=== PATIENT | male | born 1950 | race Caucasian/White ===

== ENCOUNTER → 2023-07-03 10:54 | Outpatient (REF) | payer MEDICARE, OTHER, SELFPAY | LOC: HWRAD 10:54 | PROVIDERS: ATTENDING PHYSICIAN Internal Medicine | DX: Z87.891 Personal history of nicotine dependence (principal) | CPT/HCPCS: 71271 ==

== ENCOUNTER → 2024-07-05 07:00 | Outpatient (REF) | payer MEDICARE, OTHER, SELFPAY | LOC: PAVMRI 07:00 | PROVIDERS: ATTENDING PHYSICIAN Internal Medicine | DX: M54.12 Radiculopathy, cervical region (principal) | CPT/HCPCS: 72141 ==

== ENCOUNTER → 2024-07-09 10:47 | Outpatient (REF) | payer MEDICARE, OTHER, SELFPAY | LOC: HWRAD 10:47 | PROVIDERS: ATTENDING PHYSICIAN Internal Medicine | DX: Z87.891 Personal history of nicotine dependence (principal) | CPT/HCPCS: 71271 ==

== ENCOUNTER → 2025-01-10 07:25 | Outpatient (REF) | payer MEDICARE, OTHER, SELFPAY | LOC: RAD 07:25 | PROVIDERS: ATTENDING PHYSICIAN Internal Medicine | DX: I73.9 Peripheral vascular disease, unspecified (principal) | CPT/HCPCS: 93925 ==

== ENCOUNTER 2025-02-23 03:41 | Inpatient (IN) | payer MEDICARE, OTHER, SELFPAY ==
[2025-02-22 19:24] VITALS: BP 182/83
[2025-02-22 19:51] LABS: Hematocrit 42.2 % (39.0-52.0); Hemoglobin 14.7 g/dL (13.0-18.0); Mean Corp Hgb Conc. 34.8 g/dL (33.0-37.0); Mean Corpuscular Volume 90.9 fL (80.0-94.0); Nucleated Red Blood Cells % 0 % (-); Platelet Count 169 10^3/uL (130-400); Red Cell Dist. Width 12.5 % (11.5-14.5)
[2025-02-22 20:11] LABS: ALT (SGPT) 17 U/L (0-50); AST (SGOT) 16 U/L (17-59); Albumin 4.1 g/dl (3.5-5.0); Alkaline Phosphatase 46 U/L (38-126); Blood Urea Nitrogen 18 mg/dl (9-20); Calcium 9.3 mg/dl (8.4-10.2); Carbon Dioxide 28 mmol/L (22-30); Chloride 103 mmol/L (98-107); Glucose 144 mg/dl (70-99); Potassium 4.0 mmol/L (3.5-5.1); Sodium 136 mmol/L (135-145); Total Protein 7.7 g/dl (6.3-8.2); eGFR > 60.00
[2025-02-22 20:22] LABS: Troponin I < 0.012 ng/ml
[2025-02-23] VITALS (13 sets, daily range): BP systolic 145–203; BP diastolic 80–111; PULSE 63; O2SAT 99; BMI 26.4
--- NOTE | 2025-02-23 00:02 | ED.GENMED ---
History of Present Illness
General
Chief Complaint: Dizziness
Source: patient
Exam Limitations: none
Time Seen by Provider: 02/23/25 00:02
History of Present Illness
History of Present Illness:
Patient noted difficulty with ambulation and feeling like his equilibrium was all starting this morning. No vertigo. No syncope or near syncope. No other neurologic symptoms. No history of same. Significant blood pressure elevations throughout
the day.
Past History
Past History
ED Past Medical History: HTN, Hypercholesterolemia and Other (bph)
ED Past Surgical History: Orthopedic
Social History
Tobacco: Smoker
Alcohol: Occasional
Drug: None
Personal:
Living: with family
Review of Systems
Review of Systems
All Other Systems: Not applicable
Constitutional: Denies fever
Respiratory: Reports no symptoms
Cardiac: Reports no symptoms
Phy Exam
Physical Exam
Physical Exam:
GENERAL: Alert and oriented in no apparent distress
EYE: Orbits normal.
NECK: Supple, no carotid bruit
ENT: Pharynx without erythema
CARDIAC: Regular rate and rhythm without any obvious murmurs.
LUNGS: Clear breath sounds,normal
ABDOMEN: Soft, without focal tenderness or distention
NEUROLOGICAL: Alert and oriented , speech normal. Cranial nerves II through XII intact. Unwpon-aa-nycw normal. No drift. Yfbw-br-ycig normal. Gait slightly wide-based and mildly ataxic with a mildly positive Romberg
SKIN: Warm and dry, no rash or lesion, no discoloration, skin intact.
MUSCULOSKELETAL: No edema,no deformity.Good color
PSYCH: Normal and appropriate interaction.
Course
Orders/Labs/Results
Orders:
Orders
02/22/25 19:29
EKG [Electrocardiogram (*1)] Urgent
Reason for Study: Vertigo / Dizzy
EKG- Treatment ONCE
02/22/25 19:41
Complete Blood Count/With Diff Urgent
Comprehensive Metabolic Panel Urgent
Troponin I Urgent
02/23/25 00:23
CT Head W/o Iv Contrast Urgent
Comment:
Reason For Exam: Disequilibrium
Cardiac Monitoring- Treatment ONCE
IV Insert/Care/Rem.- Treatment PRN
02/23/25 03:08
Admit/Transfer Patient As Directed
Co-Sign Provider:
Level of Care: Inpatient admission
Assign to:: Telemetry
Physician / Group: Deshawn
Diagnosis: Hypertensive Urgency, Ataxia
Reason for Telemetry: CVA/TIA
Date to Stop Telemetry: 02/26/25
Time to Stop Telemetry: 11:00
Reason for Hospitalization: Hypertensive Urgency, Ataxia
Expected length of stay greater than two midnights?: Yes
ELOS- Estimated Length of Stay in days: 2
I certify the patient meets the requirements for IP care: Yes
Labetalol HCl [Trandate] 10 mg IV NOW STA
PRN Pain Medication Management As Directed
May give lesser potent ordered pain med per pt: Yes
preference::
Protocol:: Medication orders for pain may be administered in a
manner that supports deferring to patient preference
when the pt is:
- Requesting an ordered lesser potent pain medication.
Least to most potent pain medications are defined
as: acetaminophen < NSAID < tramadol < opioids
(morphine, oxycodone, hydromorphone).
- Requesting a lesser dose of the same medication IF
ORDERED.
- Requesting a less intrusive route of administration
if both routes are prescribed by the provider (PO <
IV).
02/23/25 03:09
Code Status As Directed
Resuscitation Status: Full Code
02/23/25 03:48
Acetaminophen [Tylenol] 650 mg PO Q4HPRN PRN
FOLic ACID [Folvite] 1 mg 0.9% Sodium Chloride 50 ml [Nss] 50 ml IV DAILYPRN
HydrALAZINE [Apresoline] 5 mg IV Q6HPRN PRN
Lorazepam [Ativan] 1 mg PO Q2HPRN PRN
02/23/25 03:48
Case Management Consult Once
Case Management Consult: Other
Comment: Substance abuse counseling
DIETARY IP CONSULT Routine
Reason for Consult: Nutrition support, possible refeeding guidelines
Activity As Directed
Activity Level: Ambulate
With Assistance
Bladder Scan As Directed
Follow Bladder Retention/Intermittent Cath Algorithm?: Yes
PRN if no void in __ hours: 6
Frequency: Per Retention Algorithm
If Bladder Scan Result >: 400
then:: Straight cath
EKG with chest pain [ECG as needed] As Directed
ECG as needed for:: Chest Pain
I/O [Intake/ Output] As Directed
Frequency: Per unit guidelines
MSAS SCORE As Directed
MSAS Score 0-4: Repeat MSAS every 2 hours until 0-4 for three consecutive assessments, then every 4 hours x 48
hours.
MSAS Score 5-7: For MILD withdrawl symptoms. Repeat MSAS and RASS every 2 hours
MSAS Score 8-11: For MODERATE withdrawal symptoms. Repeat MSAS and RASS every 1 hour. Consider ICU or IMU
level of care.
MSAS Score > 11: For SEVERE withdrawal symptoms. Repeat MSAS and RASS every 1 hour. Notify provider, consider
ICU level of care.
MSAS Additional Instructions: If no improvement or no decrease in score from severe to moderate within 12
hours, consult psychiatry
MSAS Notify Provider: Notify provider if patient requires more than 10 mg of Lorazepam in eight hour period.
Neurological Checks As Directed
Frequency: q4h
Orthostatic Vital Signs As Directed
Orthostatic VS Frequency: BID
Pneumatic Compression Sleeves As Directed
Type: Knee high
Straight Cath As Directed
Frequency: Per Retention Algorithm
Additional Instructions: straight cath as needed per acute urinary retention algorithm for 24 hrs
Additional Instructions: for bladder scan greater than 400 mL
Vital Signs As Directed
Frequency: Per unit guidelines
Weight As Directed
Frequency: Daily
Oxygen Therapy [O2 Therapy] [RESP] Routine
Titrate/Wean O2 to maintain O2 sat greater than (%): 94
Ot Eval And Treat Routine
PT Consult [Pt Eval And Treat] Routine
Activity Level: Ambulate
With Assistance
DX Deep Vein Thrombosis Video Routine
02/23/25 03:53
COVID-19 Antigen Urgent
Source: Nasal Swab
02/23/25 03:59
diazePAM [Valium Injection] 5 mg IV Q1HPRN PRN
02/23/25 04:00
diazePAM [Valium Injection] 10 mg IV Q1HPRN PRN
02/23/25 04:03
Urinalysis Urgent
Date Specimen was Collected: 02/23/25
Time Specimen was Collected: 03:55
Urine Drug Abuse Screen Routine
Date Specimen was Collected: 02/23/25
Time Specimen was Collected: 03:55
02/23/25 05:25
Basic Metabolic Panel IN AM
Cardiovascular Evaluation IN AM
Complete Blood Count/No Diff IN AM
Glycohemoglobin (HgbA1c) Routine
02/23/25 06:00
EKG [Electrocardiogram (*1)] IN AM
Reason for Study: Chest Pain
Regular
At Your Request: Full Participation
MR Brain Without Contrast IN AM
Comment:
Reason For Exam: CVA / TIA
Recent pill cam endoscopy?: No
02/23/25 08:00
Aspirin Chewable [Low Strength Aspirin] 81 mg PO DAILY
FOLic ACID [Folvite] 1 mg PO DAILY
Finasteride [Proscar] 5 mg PO DAILY
Losartan [Cozaar] 50 mg PO BID
Thiamine Injection 200 mg IV Q12
02/23/25 18:00
Rosuvastatin Calcium [Crestor] 10 mg PO QPM
02/26/25 08:00
Thiamine HCl [Vitamin B1] 100 mg PO BID
02/26/25 11:00
DC Protocol for Telemetry ONCE
Abnormal Lab Results
02/22/25
19:41
RBC 4.64 L 10^6/uL
(4.70-6.10)
MCH 31.7 H pg
(27.0-31.0)
Absolute Monos (auto) 0.7 H 10^3/uL
(0.1-0.6)
Monocytes % 9.5 H %
(1.7-9.3)
Glucose 144 H mg/dl
(70-99)
AST 16 L U/L
(17-59)
02/22/25 19:41
02/22/25 19:41
Vital Signs
Initial and Last Documented VS:
Initial Vital Signs
Temp Pulse Resp BP Pulse Ox
98.7 F 73 20 182/83 98
02/22/25 19:24 02/22/25 19:24 02/22/25 19:24 02/22/25 19:24 02/22/25 19:24
Last Documented Vital Signs
Temp Pulse Resp BP Pulse Ox
98 F 64 14 150/87 98
02/24/25 11:02 02/24/25 11:02 02/24/25 11:02 02/24/25 11:02 02/24/25 11:02
MDM/Problems Addressed
Differential Diagnosis Includes:
Patient complaining of some ataxia, disequilibrium. Started this morning. No other neurologic symptoms. Not describing vertigo syncope or near syncope. Concerning for possible central etiology. Also with significant systolic hypertension.
Admit for further care
*Radiology
Radiology exam reviewed: radiology read reviewed (Questionable 3 mm subdural involving the tentorium)
*Pulse Oximetry
SaO2: 98
Oxygen Mode of Delivery: Room air
Patient hypoxic: no
*EKG
Interpreted by ED Provider?: Yes
Interpretation: normal
Comparison EKG: no changes
Heart Rate: 64
Rate: normal
Rhythm: sinus
Ridgeway: normal axis
Interval: normal interval
QRS Pattern: normal QRS
Ischemia: no ischemia
*Critical Care Note
Total Time (30-74mins, 75-104mins- exclusive of procedures): Not Applicable
Data Reviewed
Review of Other/Old Records Reveals: Labs, Records and Testing
Update Note
Update Note:
Reviewed with [facility]. No indication for transfer at this time. Repeat CT in 6 hours. Patient was reviewed and has had no trauma. Unlikely to be the etiology of his symptoms. Takes a baby aspirin per day. As for blood pressure,
systolic remains elevated along with diastolic. For central nonhemorrhagic would want permissive hypertensive. For possibility of subdural would want to keep blood pressure well-maintained. Given the low suspicion for significant subdural along
with more suspicion for central nonhemorrhagic etiology his current blood pressure of 180/105 we will continue observation
ED Attending Note
-
Portions of this chart may have been created with voice recognition software.� Occasional wrong word or��sound alike� substitutions may have occurred due to the inherent limitations of voice recognition software.
Discharge Plan
Departure
Patient Disposition: Admit
Date of Disposition: 02/23/25
Time of Disposition: 02:23
Presentation/result/management discussed w/ accepting MD/DO: Hospitalist
Discharge Problem:
Ataxia/disequilibrium, Possible small subdural, Elevated blood pressure reading
Interventions
Interventions:
*Risk Screen - Suicide Last Done: 02/22/25 19:24
*General Assessment Last Done: 02/22/25 19:24
*Neglect/Abuse Screening Last Done: 02/22/25 19:24
*ED- Fall Risk Assessment Last Done: 02/23/25 02:26
*ED COVID-19 Vaccine History Last Done: 02/22/25 19:28
*Nursing Disposition Last Done: 02/23/25 04:47
ED- Neurological Assessment Last Done: 02/23/25 00:51
ED- Cardiac Assessment Last Done: 02/23/25 02:00
ED Swallowing Screen Last Done: 02/23/25 00:51
Discharge Date and Time
Discharge Date/Time: 02/23/25 04:48
--- NOTE | 2025-02-23 03:13 | HPS.HSE ---
Family Physician
-
Family Physician: Joel Reza
Chief Complaint
-
Unsteady Gait
History of Present Illness
Patient is a 75y M with PMH significant for hypertension and BPH who presents to ED complaining of unsteady gait since this AM. Patient states that he felt well yesterday with no issues / complaints. Early this AM he noted that his balance was
off. He states he was 'stumbling around like a drunk'. He did not fall. He denies any lightheadedness or room spinning sensation. He states that it felt like he was standing on a boat / moving floor. He denies any associated headache, vision
changes, numbness / tingling, focal weakness, etc. He denies any prior h/o similar symptoms.
Patient notes that his symptoms persisted throughout the day and he presented to the ED for further evaluation.
He monitored his BP at home today and it was consistently 200/100 or so. He monitors his BP daily and states that it is usually 120/80.
His losartan dose was actually decreased about 2 1/2 months ago due to low BP.
No other recent medication changes.
No personal history of OH, CVA.
Medical History
Past Medical History
Past Medical History: Reports Other
Additional Past Medical History:
Hypertension
BPH
PAD
SUJATHA (not on CPAP)
Past Surgical History: Reports Other
Additional Past Surgical History:
Left Wrist ORIF
Social History
Tobacco: Smoker (Current every day smoker. 1/2 ppd. > 40 pack years total.)
Alcohol: Daily (2-3 drinks daily on average.)
Drug: None
Family History
Family History: Not pertinent
Allergies / Home Medications
Allergies reflects when Allergies were last updated in [employer]
Home Medications with original date entered in [employer]
Allergy/Medication List:
Allergies
Allergy/AdvReac Type Severity Reaction Status Date / Time
No Known Allergies Allergy Verified 02/22/25 19:31
Home Medications
losartan 100 mg tablet 50 mg PO DAILY 10/17/19
rosuvastatin 10 mg tablet 10 mg PO QPM 10/17/19
famotidine 20 mg tablet 20 mg PO DAILY 02/23/25
finasteride 5 mg tablet 5 mg PO DAILY 02/23/25
Review of Systems
-
History Source: Patient
A 12 point ROS was completed and negative except as noted: Yes
Constitutional: Denies Fever or Chills
Respiratory: Denies Cough or Trouble Breathing
Cardiac: Denies Chest Pain or Palpitations
Abdomen/GI: Denies Abdominal Pain, Nausea, Vomiting or Diarrhea
: Denies Dysuria or Flank Pain
Musculoskeletal: Denies Joint Pain or Edema
Neurological: Reports Other (ataxia); Denies Dizzy, Headache, Weakness or Numbness
Psych: Denies Depression or Anxiety
Physical Exam
Vital Signs
Vital Signs
Temp Pulse Resp BP Pulse Ox
98.7 F 62 16 179/104 97
02/22/25 19:24 02/23/25 02:19 02/23/25 02:19 02/23/25 02:16 02/23/25 02:19
Physical Exam
General: Other (75y M in no acute distress.)
HEENT: Moist mucous membranes and PERRLA
Respiratory: Clear; No Wheezes, Rales or Rhonchi
Cardiac: S1/S2, Regular Rhythm and Murmur (II/ CHICHI)
GI: Soft, Non Tender, Non Distended and Normal Bowel Sounds
Musculoskeletal: No Clubbing, No Cyanosis and No Edema
Neuro: AO x 3 and Other (Strength and sensation are intact and symmetric. Somewhat tremulous / unsteady with [id number] on the L.)
Laboratory Results
-
02/22/25 19:41
02/22/25 19:41
Laboratory Results
Total Bilirubin 0.5 mg/dl (0.2-1.3) 02/22/25 19:41
AST 16 U/L (17-59) L 02/22/25 19:41
ALT 17 U/L (0-50) 02/22/25 19:41
Alkaline Phosphatase 46 U/L (38-126) 02/22/25 19:41
Troponin I < 0.012 ng/ml 02/22/25 19:41
Impression/Plan
-
A/P: Patient is a 75y M with PMH significant for hypertension and BPH who presents to ED for evaluation of elevated BP and ataxia.
Ataxia
Hypertensive Urgency
- Admit for further evaluation and treatment.
- ? CVA with reflex hypertension versus unsteady gait / ataxia secondary to marked hypertension.
- Multiple risk factors for CVA including ongoing tobacco use, hypertension, etc.
- Follow serial neurologic exams for changes.
- ASA daily for now. Continue statin.
- MRI in AM.
- PT / OT evaluations.
- Neuro eval for additional recommendations.
- Check lipids, A1C, etc.
- Lower BP and follow for any improvement in symptoms. IV labetalol x 1 dose now.
- Continue losartan and increased to BID. IV hydralazine PRN.
- Adjust med regimen as needed for adequate BP control prior to discharge.
Abnormal CT Head
- CT done in the ED shows area of thickening of the L tentorium. Cannot rule out small SDH (doubtful).
- Repeat imaging with MRI in AM as noted above to assess for any changes.
BPH
- Continue finasteride. Bladder scan protocol.
SUJATHA
- Not tolerant of PAP therapy.
- Would encourage follow-up with Sleep specialist to discuss treatment options.
Tobacco Use Disorder
Alcohol Use Disorder
- Encourage cessation of both.
- Monitor for any signs / symptoms of EtOH withdrawal and treat with BZDs as needed.
- Thiamine, MVI replacement, etc.
DVT Prophylaxis: SCDs
Code Status: Full
[2025-02-23] MEDS: TRANDATE 10 MG IV (03:41)
[2025-02-23 04:13] LABS: Urine Character Clear (Clear)
[2025-02-23 04:18] LABS: COVID-19 Antigen Negative (Negative)
[2025-02-23 04:24] LABS: Urine Red Blood Cell 0-2 /HPF (0-2); Urine Squamous Cell 0-2 /LPF (Few); Urine White Cell 0-2 /HPF (0-5)
[2025-02-23 06:00] LABS: Hematocrit 40.7 % (39.0-52.0); Hemoglobin 14.0 g/dL (13.0-18.0); Mean Corp Hgb Conc. 34.4 g/dL (33.0-37.0); Mean Corpuscular Volume 91.7 fL (80.0-94.0); Platelet Count 153 10^3/uL (130-400); Red Cell Dist. Width 12.5 % (11.5-14.5)
--- NOTE | 2025-02-23 06:01 | TRANSFER ---
Pt transferred to 3W from ED via stretcher. Pt ambulated to hospital bed from stretcher. Pt AAOx3, oriented to room, call mario within reach, plan of care ongoing.
[2025-02-23 06:19] LABS: Blood Urea Nitrogen 16 mg/dl (9-20); Calcium 9.2 mg/dl (8.4-10.2); Carbon Dioxide 26 mmol/L (22-30); Chloride 105 mmol/L (98-107); Glucose 100 mg/dl (70-99); HDL Cholesterol 62 mg/dl; LDL Cholesterol, Calculated 50 mg/dl; Magnesium 2.0 mg/dl (1.6-2.3); Potassium 3.9 mmol/L (3.5-5.1); Sodium 137 mmol/L (135-145); Very Low Density Lipoprotein 21 mg/dl (0-30); eGFR > 60.00
[2025-02-23] MEDS: FOLVITE 1 MG PO (08:03)
[2025-02-23] MEDS: LOW STRENGTH ASPIRIN 81 MG PO (08:03)
[2025-02-23] MEDS: COZAAR 50 MG PO ×2 (08:03→14:10)
[2025-02-23] MEDS: THIAMINE INJECTION 200 MG IV ×2 (08:04→19:52)
[2025-02-23] MEDS: PROSCAR 5 MG PO (08:04)
[2025-02-23 10:00] LABS: Glycohemoglobin (HgbA1c) 5.2 % (4.0-5.6)
--- NOTE | 2025-02-23 13:47 | W.PN.HOSP.TC ---
Today's Communication/Plan
-
Increase losartan to 100 mg
Neuro eval
Assessment / Plan
Assessment / Plan
74-year-old presented to the unsteady gait patient fell day prior to admission as his balance was off.
CT head-3 mm thickening involving left tentorium may represent small subdural. No herniation or hydrocephalus
MRI -No acute intracranial abnormality noted.Mild atrophy with sequelae of mild chronic small vessel ischemic disease.Moderate mucosal thickening of the left maxillary sinus.
CVS: S1-S2 normal
Chest: CTA B/L
Abdomen: Soft, NT / Bowel sounds present
Extremities: No edema
[employer]: Non focal exam
# Ataxia
MRI with out acute changes
Possible hypertensive encephalopathy
? Alcohol related peripheral neuropathy?
Add a B 12 level
Neurology evaluation
PT OT evaluation
# Hypertension-on losartan 50 mg daily as outpatient-increased to 100 mg daily add Norvasc if blood pressure is not well-controlled.
# Hyperlipidemia-continue statin
# Prostate disease-continue finasteride
# Sleep apnea-not on PAP machine as OP
# GERD-continue Pepcid
# Stable solitary small right lower lobe pulmonary nodule-annual screening per primary physician
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
# Active smoker-cessation counseling done
# Daily alcohol use 2-3 drinks-needs to stop daily use. Discussed with pt . Watch for any withdrawal symptoms . IV thiamine.
# DVT prophylaxis-SCDs
# Full code
D/W RN
D/W Family at bed side
Part of this note was created using voice recognition system. Occasional wrong word or��sound alike� substitutions may have inadvertently occurred due to the inherent limitations of voice recognition software. If noted kindly bring it to my
attention for correction.
Anticipated Discharge: Within 24 hours
Subjective/Interval History
-
Date of Service: February 23, 2025
Objective Data
-
Labs:
Laboratory Results
02/23/25
05:25
WBC 6.4
Hgb 14.0
Hct 40.7
Plt Count 153
Sodium 137
Potassium 3.9
Chloride 105
Carbon Dioxide 26
BUN 16
Creatinine 0.8
Glucose 100 H
Calcium 9.2
Vital Signs:
Vital Signs
Temp Pulse Resp BP Pulse Ox
98.1 F 66 14 165/95 98
02/23/25 08:00 02/23/25 12:26 02/23/25 08:00 02/23/25 12:26 02/23/25 08:00
I&O
02/22/25 02/23/25 02/24/25
06:59 06:59 06:59
Intake Total 240 / 240
Balance 240 / 240
--- NOTE | 2025-02-23 14:27 | CON.NEURO ---
Consultation
Order
Date of Consultation: 02/23/25
Requesting Provider: Faye Galeas MD
Reason for Consult: Ataxia
Neurology Consultation Note.
HPI: This is a 75-year-old RH man who presented to [facility] on 02/22/2025 with imbalance.
Mr. Ross reports experiencing an acute disequilibrium in the morning on 02/22/2025. he patient describes feeling unstable, as if they were 'on a boat.' No reports of headache, change in vision, strength and sensation. The patient denied having
fever, ear pain, tinnitus, nasal congestion or recent airplane travel.
This imbalance has persisted since its onset on Friday morning and continues to be present. The patient denies any tinnitus, ear pain, headaches, nausea, recent air travel, double vision, or speech problems. They attribute the imbalance to their
head rather than their feet.
Mr. Ross states that his Lozartan dose was reduced from 100 to 50mg due to hypotension and near syncopal episodes. The patient reports a weight loss of 25-28 pounds over the last two years. Despite the improvement in blood pressure, the imbalance
persists.
ER VS: 182/83-200/104, 73, afebrile
EKG:NSR, QTcB Int : 416 ms
PDMP:none
Labs: Glucose�144, LDL 50, normal WBCs, creatinine, magnesium, sodium.
Brain MRI�no acute abnormalities, scattered T2/FLAIR hyperintensities within the subcortical and periventricular white matter of the bilateral cerebral hemispheres.
Moderate mucosal thickening of the left maxillary sinus.
PMH: DLP, BPH, PAD, SUJATHA, CPAP intolerant
PSH:L wrist ORIF
SH: Active smoker, daily alcohol use.
FH: Noncontributory to current presentation
All:NKDA
ROS: General: Positive for weight loss.
HEENT: Positive for recent cold symptoms. Negative for ear pain, tinnitus, headaches.
Cardiovascular: Negative for chest pain.
Gastrointestinal: Negative for upset stomach.
Neurological: Positive for dizziness, gait disturbance, imbalance. Negative for double vision, speech problems.
Musculoskeletal: Positive for numbness in feet.
General: Well developed. In no acute distress.
Cardio: Regular rate and rhythm without murmur. Extremities are without cyanosis or edema.
Neuro:
Mental Status: Alert, oriented to person, place, and date. Normal attention and recall. Good fund of knowledge. Follows complex requests across the midline. Comprehension, naming, and repetition intact. Immediate and delayed recall 3/3.
Cranial Nerves: Pupils are equally round and reactive to light. EOMs full. Visual núñez full to confrontation. No ptosis. No nystagmus. V1-V3 intact to light touch and pinprick bilaterally, symmetric. Face symmetric. Impaired hearing right
greater than left. No lateralization on Hansen's testing. The palate elevated well. SCMs and traps 5/5. Tongue midline. No dysarthria.
Motor: Normal bulk and tone. No pronator or arm drift. Strength 5/5 throughout. No clonus.
Reflexes: 2+ throughout the upper extremities and trace knees. Plantar responses flexor bilaterally.
Sensory: Absent vibration at the toes
Coordination: No dysmetria or tremor.
Gait: Normal base, stance, normal stride, ataxic
Assessment and Plan:
I. Ataxia. Likely due to peripheral vertigo
II. Hypertension, suboptimal controlled
III. 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
- Fall precaution
- Outpatient ENT evaluation
- OP VNG.
- Meclizine 25 mg every 8 hours as needed
- Avoid neurotoxins
- Follow-up polyneuropathy blood work
- Please recall neurology services any questions or concerns
I personally reviewed all radiology and labs along with past medical records pertinent to current medical problems. Total time spent in patient care is 60 minutes.
Thank you for allowing us to participate in the care of this patient. Please do not hesitate to contact us with any questions or concerns.
Subjective/Objective
Subjective Data
Date of Service: February 23, 2025
Objective Data
Vital Signs
Temp Pulse Resp BP Pulse Ox
36.7 C 65 14 145/80 98
02/23/25 08:00 02/23/25 14:10 02/23/25 08:00 02/23/25 14:10 02/23/25 08:00
Lab Results
02/23/25 05:25
02/23/25 05:25
Sodium 137 mmol/L (135-145) 02/23/25 05:25
Potassium 3.9 mmol/L (3.5-5.1) 02/23/25 05:25
BUN 16 mg/dl (9-20) 02/23/25 05:25
Glucose 100 mg/dl (70-99) H 02/23/25 05:25
Calcium 9.2 mg/dl (8.4-10.2) 02/23/25 05:25
Phosphorus 3.7 mg/dl (2.5-4.5) 02/23/25 05:25
LDL Cholesterol, Calc 50 mg/dl 02/23/25 05:25
Ur Buprenorphine Negative (Negative) 02/23/25 04:03
Patient Allergies
No Known Allergies Allergy (Verified 02/22/25 19:31)
Medications
-
Active Medications
Generic Name Dose Route Start Last Admin
Trade Name Freq PRN Reason Stop Dose Admin
Acetaminophen 650 mg 02/23/25 03:48
Acetaminophen 325 Mg Tablet PO 03/23/25 03:47
Q4HPRN PRN
Mild Pain / Temp > 101
Aspirin 81 mg 02/23/25 08:00 02/23/25 08:03
Aspirin 81 Mg Chewable Tablet PO 03/23/25 07:59 81 mg
DAILY BISHOP Administration
Diazepam 5 mg 02/23/25 03:59
Diazepam 10 Mg/2 Ml Inj IV 03/23/25 03:58
Q1HPRN PRN
MSAS 8-11
Diazepam 10 mg 02/23/25 04:00
Diazepam 10 Mg/2 Ml Inj IV 03/23/25 03:59
Q1HPRN PRN
MSAS > 11
Finasteride 5 mg 02/23/25 08:00 02/23/25 08:04
Finasteride 5 Mg Tablet PO 03/23/25 07:59 5 mg
DAILY BISHOP Administration
Folic Acid 1 mg 02/23/25 08:00 02/23/25 08:03
Folic Acid 1 Mg Tablet PO 03/23/25 07:59 1 mg
DAILY BISHOP Administration
Hydralazine HCl 5 mg 02/23/25 03:48
Hydralazine 20 Mg/Ml Vial IV 03/23/25 03:47
Q6HPRN PRN
SBP > 180 or DBP > 110
Folic Acid 1 mg/ Sodium 50.2 mls @ 200.8 mls/hr 02/23/25 03:48
Chloride IV 03/23/25 03:47
DAILYPRN PRN
if NPO
Lorazepam 1 mg 02/23/25 03:48
Lorazepam 1 Mg Tablet PO 03/23/25 03:47
Q2HPRN PRN
MSAS 5-7
Losartan Potassium 100 mg 02/24/25 08:00
Losartan 100 Mg Tablet PO 03/24/25 07:59
DAILY BISHOP
Rosuvastatin Calcium 10 mg 02/23/25 18:00
Rosuvastatin (Crestor) 10 Mg Tablet PO 03/23/25 17:59
QPM BISHOP
Sodium Chloride 0 flush 02/23/25 15:00
Sodium Chloride 0.9% (Flush) Syringe IV 03/23/25 14:59
PER PROTOCOL BISHOP
Thiamine HCl 200 mg 02/23/25 08:00 02/23/25 08:04
Thiamine (100 Mg/Ml) 2 Ml Vial IV 02/25/25 20:01 200 mg
Q12 BISHOP Administration
Thiamine HCl 100 mg 02/26/25 08:00
Thiamine 100 Mg Tablet PO 03/26/25 07:59
BID BISHOP
Home Medications
�Medication �Instructions �Recorded
losartan 100 mg tablet 50 mg PO DAILY 10/17/19
rosuvastatin 10 mg tablet 10 mg PO QPM 10/17/19
famotidine 20 mg tablet 20 mg PO DAILY 02/23/25
finasteride 5 mg tablet 5 mg PO DAILY 02/23/25
Vital Signs and Labs
-
Vital Signs and Labs:
Vital Signs
Temp Pulse Resp BP Pulse Ox
36.7 C 65 14 145/80 98
02/23/25 08:00 02/23/25 14:10 02/23/25 08:00 02/23/25 14:10 02/23/25 08:00
Lab Results
02/23/25 05:25
02/23/25 05:25
Sodium 137 mmol/L (135-145) 02/23/25 05:25
Potassium 3.9 mmol/L (3.5-5.1) 02/23/25 05:25
BUN 16 mg/dl (9-20) 02/23/25 05:25
Glucose 100 mg/dl (70-99) H 02/23/25 05:25
Calcium 9.2 mg/dl (8.4-10.2) 02/23/25 05:25
Phosphorus 3.7 mg/dl (2.5-4.5) 02/23/25 05:25
LDL Cholesterol, Calc 50 mg/dl 02/23/25 05:25
Ur Buprenorphine Negative (Negative) 02/23/25 04:03
Medications
-
Medications:
Generic Name Dose Route Start Last Admin
Trade Name Freq PRN Reason Stop Dose Admin
Acetaminophen 650 mg 02/23/25 03:48
Acetaminophen 325 Mg Tablet PO 03/23/25 03:47
Q4HPRN PRN
Mild Pain / Temp > 101
Aspirin 81 mg 02/23/25 08:00 02/23/25 08:03
Aspirin 81 Mg Chewable Tablet PO 03/23/25 07:59 81 mg
DAILY BISHOP Administration
Diazepam 5 mg 02/23/25 03:59
Diazepam 10 Mg/2 Ml Inj IV 03/23/25 03:58
Q1HPRN PRN
MSAS 8-11
Diazepam 10 mg 02/23/25 04:00
Diazepam 10 Mg/2 Ml Inj IV 03/23/25 03:59
Q1HPRN PRN
MSAS > 11
Finasteride 5 mg 02/23/25 08:00 02/23/25 08:04
Finasteride 5 Mg Tablet PO 03/23/25 07:59 5 mg
DAILY BISHOP Administration
Folic Acid 1 mg 02/23/25 08:00 02/23/25 08:03
Folic Acid 1 Mg Tablet PO 03/23/25 07:59 1 mg
DAILY BISHOP Administration
Hydralazine HCl 5 mg 02/23/25 03:48
Hydralazine 20 Mg/Ml Vial IV 03/23/25 03:47
Q6HPRN PRN
SBP > 180 or DBP > 110
Folic Acid 1 mg/ Sodium 50.2 mls @ 200.8 mls/hr 02/23/25 03:48
Chloride IV 03/23/25 03:47
DAILYPRN PRN
if NPO
Lorazepam 1 mg 02/23/25 03:48
Lorazepam 1 Mg Tablet PO 03/23/25 03:47
Q2HPRN PRN
MSAS 5-7
Losartan Potassium 100 mg 02/24/25 08:00
Losartan 100 Mg Tablet PO 03/24/25 07:59
DAILY BISHOP
Rosuvastatin Calcium 10 mg 02/23/25 18:00
Rosuvastatin (Crestor) 10 Mg Tablet PO 03/23/25 17:59
QPM BISHOP
Sodium Chloride 0 flush 02/23/25 15:00
Sodium Chloride 0.9% (Flush) Syringe IV 03/23/25 14:59
PER PROTOCOL BISHOP
Thiamine HCl 200 mg 02/23/25 08:00 02/23/25 08:04
Thiamine (100 Mg/Ml) 2 Ml Vial IV 02/25/25 20:01 200 mg
Q12 BISHOP Administration
Thiamine HCl 100 mg 02/26/25 08:00
Thiamine 100 Mg Tablet PO 03/26/25 07:59
BID BISHOP
Home Medications
-
Home Medications
losartan 100 mg tablet 50 mg PO DAILY 10/17/19
rosuvastatin 10 mg tablet 10 mg PO QPM 10/17/19
famotidine 20 mg tablet 20 mg PO DAILY 02/23/25
finasteride 5 mg tablet 5 mg PO DAILY 02/23/25
[2025-02-23 15:06] LABS: Vitamin B12 347 pg/ml (239-931)
[2025-02-23] MEDS: CRESTOR 10 MG PO (17:01)
[2025-02-23] MEDS: PROTONIX 40 MG PO (19:52)
[2025-02-23] MEDS: MAALOX 30 ML PO (19:52)
[2025-02-23 22:00] LABS: Troponin I < 0.012 ng/ml
[2025-02-23] MEDS: APRESOLINE 5 MG IV (23:19)
[2025-02-24 03:26] VITALS: BP 143/100
[2025-02-24 06:26] VITALS: BMI 26.1
[2025-02-24 06:27] LABS: Troponin I < 0.012 ng/ml
[2025-02-24] MEDS: COZAAR 100 MG PO (07:30)
[2025-02-24] MEDS: THIAMINE INJECTION 200 MG IV (07:30)
[2025-02-24] MEDS: PROTONIX 40 MG PO (07:30)
[2025-02-24] MEDS: FOLVITE 1 MG PO (07:30)
[2025-02-24] MEDS: PROSCAR 5 MG PO (07:31)
[2025-02-24] MEDS: LOW STRENGTH ASPIRIN 81 MG PO (07:31)
[2025-02-24 07:53] VITALS: BP 165/97
[2025-02-24 11:02] VITALS: BP 150/87
--- NOTE | 2025-02-24 11:16 | W.PN.HOSP.TC ---
Addendum entered and electronically signed by Faye Galeas MD 02/24/25 11:25:
More than 30 minutes spent in discharge including
Final examination of the patient
Summarizing hospital stay
Instructions for continuing care to all relevant caregivers
Preparation of discharge records, prescriptions, and referral forms
Original Note:
Today's Communication/Plan
-
D/W from pt's cell.
She will bring BP monitor to see if BP matches our reading.
Discharge today
Assessment / Plan
Assessment / Plan
74-year-old presented to the unsteady gait patient fell day prior to admission as his balance was off.
CT head-3 mm thickening involving left tentorium may represent small subdural. No herniation or hydrocephalus
MRI -No acute intracranial abnormality noted.Mild atrophy with sequelae of mild chronic small vessel ischemic disease.Moderate mucosal thickening of the left maxillary sinus.
CVS: S1-S2 normal
Chest: CTA B/L
Abdomen: Soft, NT / Bowel sounds present
Extremities: No edema
DISTILLER: Non focal exam
# Ataxia
MRI with out acute changes
Possible hypertensive encephalopathy
? Alcohol related peripheral neuropathy?
Replace low normal B12
Neurology evaluation appreciated
SPEP pending
Neurology also recommending ENT evaluation as outpatient with outpatient VNG. Meclizine as needed.
PT OT evaluation
# Hypertension-on losartan 50 mg daily as outpatient-increased to 100 mg daily add Norvasc 5 mg at bedtime. from patient's cell phone
# Hyperlipidemia-continue statin
# Prostate disease-continue finasteride
# Sleep apnea-not on PAP machine as OP
# GERD-continue Pepcid
# Stable solitary small right lower lobe pulmonary nodule-annual screening per primary physician
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
# Active smoker-cessation counseling done
# Daily alcohol use 2-3 drinks-needs to stop daily use. Discussed with pt . Watch for any withdrawal symptoms . IV thiamine.
# DVT prophylaxis-SCDs
# Full code
D/W RN
D/W from pt's cell.
She will bring BP monitor to see if BP matches our reading.
Part of this note was created using voice recognition system. Occasional wrong word or��sound alike� substitutions may have inadvertently occurred due to the inherent limitations of voice recognition software. If noted kindly bring it to my
attention for correction.
Anticipated Discharge: Today
Subjective/Interval History
-
Date of Service: February 24, 2025
Objective Data
-
Vital Signs:
Vital Signs
Temp Pulse Resp BP Pulse Ox
98 F 64 14 150/87 98
02/24/25 11:02 02/24/25 11:02 02/24/25 11:02 02/24/25 11:02 02/24/25 11:02
I&O
02/23/25 02/24/25 02/25/25
06:59 06:59 06:59
Intake Total 240 / 240
Balance 240 / 240
--- NOTE | 2025-02-24 11:25 | W.DS.TRANS ---
Addendum entered and electronically signed by Faye Galeas MD 02/24/25 14:08:
Dictation- [id number]
Original Note:
DC Summary - Rate Clerk
-
Discharge Instructions:
Discharge Diagnosis/Procedures Poorly controlled hypertension
Prostate disease
Low normal B12
High cholesterol
Stable solitary tiny right lower lobe pulmonary
nodule.
Diet 2 Gram Sodium
Activity As tolerated
Driving Restrictions If you feel back to baseline then you can drive
Instructions:
Stand-Alone Forms:
Changes to Home Medications: Yes
Discharge Medications:
DC Medications w/original date entered in [employer]
amlodipine 5 mg tablet 5 mg PO HS Blood pressure #30 tabs 02/24/25
cyanocobalamin (vitamin B-12) 1,000 mcg capsule 1,000 mcg PO DAILY low normal B12 #30 caps 02/24/25
famotidine 20 mg tablet 20 mg PO BID Gastrointestinal issue #0 tabs 02/24/25
finasteride 5 mg tablet 5 mg PO DAILY Urinary issue #0 tabs 02/24/25
losartan 100 mg tablet 100 mg PO DAILY Blood pressure #30 tabs 02/24/25
meclizine 25 mg tablet 25 mg PO BID PRN vertigo #60 tabs 02/24/25
rosuvastatin 10 mg tablet 10 mg PO QPM High cholesterol #0 tabs 02/24/25
thiamine mononitrate (vit B1) 100 mg tablet 100 mg PO DAILY Supplement #0 tabs 02/24/25
Home Medication Changes
Losartan and pepcid increased
Meclizine, thiamine, B12, amlodipine are new
Pending Results: Yes
Additional Pending Results:
Vitamin D 1, hepatitis C antibody, SPEP
--- NOTE | 2025-02-24 12:18 | CM ---
Addendum entered by Jazmín Adrian 02/24/25 12:24:
Consult for SA. Patient says he only drinks socially. No drugs. Declined any services.
Original Note:
Initial assessment completed with patient who lives with his in a 1 story home with no basement, 1 step to enter. [employer] patient was independent in ADL's and ambulation, drives. He does not use any DME. There is a rollator and SPC in the home. No
in-home services. Does have a HC-POA. Does have VA benefits ([facility]). No psychiatric hospitalizations. PCP is Joel Mckinley. Pharmacy is [facility] on [address] in [place]. Discharge POC: Anticipate home with no needs.
--- NOTE | 2025-02-24 12:26 | CM ---
Patient medically cleared for discharge to home with no additional skilled services. Patient has arranged for transport home.
[2025-02-24 20:05] LABS: Hepatitis C Antibody Negative (Negative)
== END 2025-02-24 12:47 | disposition home or self-care (01) | DRG 74 ==
LOC: 3 WEST ACU 03:41
PROVIDERS: ADMITTING PHYSICIAN Hospitalist; ATTENDING PHYSICIAN Hospitalist; CONSULT PHYSICIAN Psychiatry & Neurology Neurology; EMERGENCY PHYSICIAN Emergency Medicine; FAMILY PHYSICIAN Internal Medicine
DX: G62.1 Alcoholic polyneuropathy (principal); I67.4 Hypertensive encephalopathy; R27.0 Ataxia, unspecified; I10 Essential (primary) hypertension; E78.00 Pure hypercholesterolemia, unspecified; N40.0 Benign prostatic hyperplasia without lower urinary tract symptoms; F17.210 Nicotine dependence, cigarettes, uncomplicated; G47.33 Obstructive sleep apnea (adult) (pediatric); I73.9 Peripheral vascular disease, unspecified; I16.0 Hypertensive urgency; F10.10 Alcohol abuse, uncomplicated; G62.9 Polyneuropathy, unspecified; E78.5 Hyperlipidemia, unspecified; G47.30 Sleep apnea, unspecified; K21.9 Gastro-esophageal reflux disease without esophagitis; R91.1 Solitary pulmonary nodule; Z11.52 Encounter for screening for COVID-19
CPT/HCPCS: 70450; 70551; 80048; 80053; 80061; 80306; 81003; 81015; 82607; 83036; 83735; 84100; 84155; 84165; 84425; 84484; 85025; 85027; 86803; 87811; 93005; 97163; 97167; 99285